=== PATIENT | female | born 1940 | race African-American/Black ===

== ENCOUNTER 2020-06-30 00:40 | Emergency (ER) | payer MEDICARE, MEDICAID ==
[~2020-06-30] VITALS: Ht 162.6 cm; Wt 87.0 kg
[2020-06-30] MEDS ORDERED: ASPIRIN 81MG TABLET PO ONE (01:00)
[2020-06-30 01:19] LABS: BASOPHILS % 2.7 % (0.0-2.0); EOSINOPHILS % 4.9 % (0.0-5.0); HEMATOCRIT. 38.1 % (36.0-48.0); HEMOGLOBIN. 12.7 g/dL (12.0-16.0); LYMPHOCYTES % 32.6 % (20.0-50.0); MEAN CORPUSCULAR HEMOGLOBIN 28.8 pg (28.0-32.0); MEAN CORPUSCULAR VOLUME 86.4 fL (81.0-99.0); MEAN PLATELET VOLUME 8.5 fl (7.4-10.4); MONOCYTES % 9.8 % (2.0-8.0); PLATELET 212 x1000/uL (130-400); RED BLOOD CELL COUNT 4.41 mill/uL (4.2-5.4); RED CELL DISTRIBUTION WIDTH 14.1 % (11.6-14.6)
[2020-06-30 01:26] LABS: CHLORIDE 110 mEq/L (98-107)
[2020-06-30] MEDS ORDERED: METOPROLOL TARTRATE 25MG TABLET PO ONE (01:30)
[2020-06-30 03:32] VITALS: BP 165/92
[2020-06-30 06:12] LABS: CLARITY URINE CLEAR (CLEAR); COLOR URINE YELLOW (YELLOW); KETONES URINE NEGATIVE (NEGATIVE); LEUKOCYTE ESTERASE URINE TRACE (NEGATIVE); NITRITE URINE NEGATIVE (NEGATIVE); OCCULT BLOOD URINE NEGATIVE (NEGATIVE); PH URINE 6.5 (4.5-8.0); PROTEIN URINE NEGATIVE (NEGATIVE); SPECIFIC GRAVITY URINE 1.014 (1.005-1.030)
[2020-06-30] MEDS ORDERED: TRAMADOL 50MG TABLET PO PRN (07:15)
[2020-06-30] MEDS ORDERED: KETOROLAC 15MG/ML VIAL IV PRN (07:15)
[2020-06-30] MEDS ORDERED: ONDANSETRON HCL 4MG/2ML INJ IV PRN (07:15)
[2020-06-30] MEDS ORDERED: CLONIDINE 0.1MG TABLET PO PRN (07:15)
[2020-06-30] MEDS ORDERED: ZOLPIDEM TARTRATE 5MG TABLET PO PRN (07:15)
[2020-06-30] MEDS ORDERED: POTASSIUM CHLORIDE 20MEQ TABLET SR PO NR (07:15)
[2020-06-30] MEDS ORDERED: IPRATROPIUM/ALBUTEROL 0.5-3(2.5)MG/3ML NEB NEB PRN (07:15)
[2020-06-30] MEDS ORDERED: NITROGLYCERIN 0.4MG TABLET SL SL PRN (07:15)
[2020-06-30] MEDS ORDERED: GUAIFENESIN 200MG/10ML SUGAR FREE UDC PO PRN (07:15)
[2020-06-30] MEDS ORDERED: NA PHOS,M-B/NA PHOS,DI-BA ENEMA 118ML PR PRN (07:15)
[2020-06-30] MEDS ORDERED: DOCUSATE SODIUM 100MG CAPSULE PO PRN (07:15)
[2020-06-30] MEDS ORDERED: MAGNESIUM/ALUMINUM HYDROXIDE/SIMETHICONE 30ML UDC PO PRN (07:15)
[2020-06-30] MEDS ORDERED: ACETAMINOPHEN 325MG TABLET PO PRN ×2 (07:15)
[2020-06-30] MEDS ORDERED: LEVOFLOXACIN 500MG PREMIX 100 ML IV NR (08:45)
[2020-06-30] MEDS ORDERED: ASPIRIN 325MG TABLET PO SCH (09:00)
[2020-06-30] MEDS ORDERED: ZINC SULFATE 220 MG ( 50 ) CAPSULE PO SCH (09:00)
[2020-06-30] MEDS ORDERED: AMLODIPINE 10MG TABLET PO SCH (09:00)
[2020-06-30] MEDS ORDERED: ASCORBIC ACID 500 MG TABLET PO SCH (09:00)
[2020-06-30] MEDS ORDERED: FAMOTIDINE 20MG TABLET PO SCH (09:00)
[2020-06-30] MEDS ORDERED: ENOXAPARIN 40MG/0.4ML SYR SUBCUT SCH (09:00)
[2020-06-30] MEDS ORDERED: CEFTRIAXONE 1 G PREMIX 50 ML IV SCH (10:00)
[2020-07-01] MEDS ORDERED: LEVOFLOXACIN 250MG PREMIX 50 ML IV SCH (09:00)
== END 2020-06-30 05:22 | disposition home or self-care (01) ==
LOC: ER 00:40 → CANBEDREQ 07:35
DX: I16.0 Hypertensive urgency (principal); R55 Syncope and collapse
CPT/HCPCS: 36415; 71045; 80053; 81003; 83880; 84484; 85025; 93005; 99285